=== PATIENT | male | born 1945 | race Caucasian/White ===

== ENCOUNTER 2022-04-15 07:28 | Day surgery (SDC) | payer MEDICARE ==
[2022-04-14 12:18] LABS: BASOPHILS % (AUTO) 0.3 % (0-1); EOSINOPHILS # (AUTO) 0.1 X10'3 (0-0.9); EOSINOPHILS % (AUTO) 1.3 % (0-6); HEMATOCRIT 45.2 % (42.0-52.0); HEMOGLOBIN 15.3 g/dl (14.0-17.9); LYMPHOCYTES # (AUTO) 1.6 X10'3 (1.1-4.8); LYMPHOCYTES % (AUTO) 23.9 % (21-51); MEAN CORPUSCULAR HEMOGLOBIN 33.8 PG (27.0-31.0); MEAN CORPUSCULAR HGB CONC 33.9 g/dL (33.0-36.5); MEAN CORPUSCULAR VOLUME 99.7 FL (78-98); MEAN PLATELET VOLUME 8.1 FL (7.4-10.4); MONOCYTES # (AUTO) 0.5 X10'3 (0-0.9); MONOCYTES % (AUTO) 6.6 % (2-12); NEUTROPHILS # (AUTO) 4.7 X10'3 (1.8-7.7); NEUTROPHILS % (AUTO) 67.9 % (42-75); PLATELET COUNT 240 X10'3 (140-440); RED BLOOD COUNT 4.53 X10'6 (4.70-6.10); RED CELL DISTRIBUTION WIDTH 14.1 % (11.5-14.5); WHITE BLOOD COUNT 6.9 X10'3 (4.5-11.0)
[2022-04-14 12:29] LABS: ALBUMIN 3.8 G/DL (3.4-5.0); ANION GAP 7 (8-16); BLOOD UREA NITROGEN 9 MG/DL (7-18); BUN/CREATININE RATIO 8.9 (5.4-32.0); CALCIUM 9.4 MG/DL (8.5-10.1); CHLORIDE 100 MMOL/L (99-107); CREATININE 1.01 MG/DL (0.60-1.10); GLUCOSE 129 MG/DL (70-104); SODIUM 136 MMOL/L (135-145); TOTAL CARBON DIOXIDE 29.1 MMOL/L (24-32); eGFR 72 ML/MIN
[2022-04-14 12:32] LABS: APTT 26 SECONDS (22-32)
[~2022-04-15] VITALS: Ht 172.7 cm; Wt 104.5 kg
[2022-04-15] VITALS (12 sets, daily range): BP systolic 134–168; BP diastolic 66–89
[2022-04-15] MEDS ORDERED: normal saline 1,000 ML IV SCH (07:55)
[2022-04-15] MEDS ORDERED: diphenhydrAMINE 25mg capsule PO PRN (07:55)
[2022-04-15] MEDS ORDERED: LORazepam 0.5 MG tablet PO PRN (07:55)
[2022-04-15] MEDS ORDERED: OMEP20CA16 PO (08:05)
[2022-04-15] MEDS ORDERED: GABA300T25 (08:05)
[2022-04-15] MEDS ORDERED: SIMV10TA98 PO (08:05)
[2022-04-15] MEDS ORDERED: LOSA1TAB41 PO (08:05)
[2022-04-15] MEDS ORDERED: FLUTICASONE (08:08)
[2022-04-15] MEDS ORDERED: ASPI-1144 PO (08:08)
[2022-04-15] MEDS ORDERED: METO-384 PO (08:08)
[2022-04-15] MEDS ORDERED: VITAMIN B12 PO (08:22)
[2022-04-15] MEDS ORDERED: TRIA1CAP88 PO (08:22)
[2022-04-15] MEDS ORDERED: CHOL400T57 PO (08:22)
[2022-04-15] MEDS ORDERED: CALC-212 PO (08:22)
[2022-04-15] MEDS ORDERED: UBID100C16 PO (08:22)
[2022-04-15] MEDS ORDERED: FOLI0.8C PO (08:22)
[2022-04-15] MEDS ORDERED: ALBU8HFA PO (08:24)
[2022-04-15] MEDS ORDERED: THIA100T66 PO (08:24)
[2022-04-15] MEDS ORDERED: verapamil 2.5 mg/ml inj IV ONE (08:49)
[2022-04-15] MEDS ORDERED: nitroGLYCERIN-Tridil 50MG/D5W 250 ML IV ONE (08:49)
[2022-04-15] MEDS ORDERED: LIDOcaine 1% (10mg/ml) 2ml vial ONE (08:49)
[2022-04-15] MEDS ORDERED: fentaNYL/PF 50MCG/1 ML 2ML syringe ONE (08:49)
[2022-04-15] MEDS ORDERED: heparin 1,000unit/ml 10ml vial 10 ML ONE (08:49)
[2022-04-15] MEDS ORDERED: midazolam 1 mg/ML 2ml injection ONE (08:49)
[2022-04-15] MEDS ORDERED: iohexol 350MG/ML 100ml bottle IV ONE (08:50)
[2022-04-15] MEDS ORDERED: HEPARIN SOD,PORK IN 0.45% NACL 250 ML IV ONE (10:21)
[2022-04-15] MEDS ORDERED: clopidogrel 300mg tablet ONE (10:36)
--- NOTE | 2022-04-15 11:00 | NUR ---
Bedside report received from PEGGY Christianson s/p left/right heart cath with PCI. Radial site stable with vasc band intact. No hematoma or bleeding noted. Vital signs stable/NSR on monitor.
--- NOTE | 2022-04-15 12:00 | NUR ---
Heparin gtt discontinued per MD orders.
[2022-04-15 12:19] LABS: ISTAT Hct MIX 44 %PCV (42-52); ISTAT O2 SATURATION MIX VENOUS 64 % (60-80); ISTAT SOURCE BLNK
[2022-04-20 06:24] LABS: ISTAT HGB ART 13.3 g/dl (14.0-17.9); ISTAT Hct ART 39 %PCV (42-52); ISTAT O2 SATURATION ARTERIAL 93 % (95-98); ISTAT SOURCE BLNK
== END 2022-04-15 17:30 | disposition home or self-care (01) ==
LOC: SSTAY O 07:28
PROVIDERS: ATTEND Internal Medicine Cardiovascular Disease
DX: R94.39 Abnormal result of other cardiovascular function study (principal); I25.10 Atherosclerotic heart disease of native coronary artery without angina pectoris; I10 Essential (primary) hypertension; I48.0 Paroxysmal atrial fibrillation; E78.5 Hyperlipidemia, unspecified; I48.91 Unspecified atrial fibrillation; Z90.49 Acquired absence of other specified parts of digestive tract; Z98.890 Other specified postprocedural states; Z98.41 Cataract extraction status, right eye; Z98.42 Cataract extraction status, left eye; Z79.01 Long term (current) use of anticoagulants; Z79.899 Other long term (current) drug therapy; Z82.49 Family history of ischemic heart disease and other diseases of the circulatory system; Z88.6 Allergy status to analgesic agent
CPT/HCPCS: 36415; 76937; 80048; 82803; 85014; 85025; 85347; 85610; 85730; 93005; 93460; 99152; 99153; A6258; C1725; C1751; C1769; C1874; C1894; C9600; J1644; J2250; J3010; J3490; J7030; Q0163; Q9967; 93458; A4620; A5120; A6402

== ENCOUNTER 2024-05-17 05:52 | Day surgery (SDC) | payer MEDICARE ==
[2024-05-16 16:31] LABS: BASOPHILS % (AUTO) 0.3 % (0-1); EOSINOPHILS % (AUTO) 0.7 % (0-6); HEMATOCRIT 43.5 % (42.0-52.0); HEMOGLOBIN 14.9 g/dl (14.0-17.9); LYMPHOCYTES # (AUTO) 0.9 X10'3 (1.1-4.8); LYMPHOCYTES % (AUTO) 17.6 % (21-51); MEAN CORPUSCULAR HEMOGLOBIN 36.3 PG (27.0-31.0); MEAN CORPUSCULAR HGB CONC 34.4 g/dL (33.0-36.5); MEAN CORPUSCULAR VOLUME 105.7 FL (78-98); MEAN PLATELET VOLUME 7.6 FL (7.4-10.4); MONOCYTES # (AUTO) 0.6 X10'3 (0-0.9); MONOCYTES % (AUTO) 11.2 % (2-12); NEUTROPHILS # (AUTO) 3.7 X10'3 (1.8-7.7); NEUTROPHILS % (AUTO) 70.2 % (42-75); PLATELET COUNT 226 X10'3 (140-440); RED BLOOD COUNT 4.11 X10'6 (4.70-6.10); RED CELL DISTRIBUTION WIDTH 13.6 % (11.5-14.5); WHITE BLOOD COUNT 5.3 X10'3 (4.5-11.0)
[2024-05-16 16:39] LABS: ALBUMIN 3.9 G/DL (3.4-5.0); ANION GAP 6 (8-16); BLOOD UREA NITROGEN 9 MG/DL (7-18); BUN/CREATININE RATIO 8.5 (10.0-20.0); CALCIUM 9.1 MG/DL (8.5-10.1); CHLORIDE 97 MMOL/L (99-107); CREATININE 1.06 MG/DL (0.60-1.10); GLUCOSE 94 MG/DL (70-104); POTASSIUM 3.8 MMOL/L (3.5-5.1); SODIUM 135 MMOL/L (135-145); TOTAL CARBON DIOXIDE 32.2 MMOL/L (24-32); eGFR 68 ML/MIN
[2024-05-16 16:44] LABS: APTT 27 SECONDS (22-32); PROTHROMBIN TIME 10.8 SECONDS (9.0-12.0)
[2024-05-17] VITALS (12 sets, daily range): BP systolic 109–148; BP diastolic 50–80; PULSE 50–60; RESP 13–22; TEMP 97.4; O2SAT 94–99
[~2024-05-17] VITALS: Ht 172.7 cm; Wt 98.3 kg
[~2024-05-17 05:52] MED LIST: ALBU8HFA PO; ASPI-1144 PO; CALC-212 PO; CHOL400T57 PO; FLUTICASONE; FOLI0.8C PO; GABA300T25; LOSA1TAB41 PO; METO-384 PO; OMEP20CA16 PO; SIMV10TA98 PO; THIA100T66 PO; TRIA1CAP88 PO; UBID100C16 PO; VITAMIN B12 PO
[2024-05-17] MEDS ORDERED: ROSU40TA89 PO (06:59)
[2024-05-17] MEDS ORDERED: CLOP75TA34 PO (06:59)
[2024-05-17] MEDS ORDERED: POTA99CA PO (07:04)
[2024-05-17] MEDS: LORazepam 0.5 MG tablet PO PRN (07:14)
[2024-05-17] MEDS: diphenhydrAMINE 25mg capsule PO PRN (07:14)
[2024-05-17] MEDS: normal saline 1,000 ML IV SCH (07:14)
[2024-05-17] MEDS ORDERED: heparin 1,000unit/ml 10ml vial 10 ML ONE (07:15)
[2024-05-17] MEDS ORDERED: fentaNYL/PF 50MCG/1 ML 2ML syringe ONE (07:15)
[2024-05-17] MEDS ORDERED: verapamil 2.5 mg/ml inj IV ONE (07:15)
[2024-05-17] MEDS ORDERED: iohexol 350 MG/ML 50ML vial IV ONE (07:15)
[2024-05-17] MEDS ORDERED: LIDOcaine 1% (10mg/ml) 2ml vial ONE (07:15)
[2024-05-17] MEDS ORDERED: midazolam 1 mg/ML 2ml injection ONE (07:15)
[2024-05-17] MEDS ORDERED: iohexol 350MG/ML 100ml bottle IV ONE ×2 (07:15→08:33)
[2024-05-17] MEDS ORDERED: nitroGLYCERIN 500mcg/5mL D5W 5 ML IV ONE (07:16)
[2024-05-17] MEDS ORDERED: FLUT16SP26 BOTHNARES (07:38)
[2024-05-17] MEDS ORDERED: GABA300C PO (07:38)
[2024-05-17] MEDS ORDERED: Vitamin D3 (07:40)
[2024-05-17] MEDS ORDERED: ALBU90AE INH (07:40)
[2024-05-17] MEDS ORDERED: HYDROcodone/acetaminophen 5mg/325mg tablet PO PRN (09:55)
[2024-05-17] MEDS ORDERED: HYDROcodone/acetaminophen 10/325mg tab PO PRN (09:55)
[2024-05-17] MEDS ORDERED: FLU VACC TS2024-25(6MOS UP)/PF 45 MCG/0.5 ML SYRINGE IMVAC ONE (11:00)
== END 2024-05-17 13:05 | disposition home or self-care (01) ==
LOC: SSTAY O 05:52
PROVIDERS: ATTEND Internal Medicine Cardiovascular Disease
DX: R94.39 Abnormal result of other cardiovascular function study (principal); I25.10 Atherosclerotic heart disease of native coronary artery without angina pectoris; Z23 Encounter for immunization; E78.5 Hyperlipidemia, unspecified; F17.200 Nicotine dependence, unspecified, uncomplicated; I48.0 Paroxysmal atrial fibrillation; I10 Essential (primary) hypertension; Z95.5 Presence of coronary angioplasty implant and graft; Z92.3 Personal history of irradiation; Z85.51 Personal history of malignant neoplasm of bladder
CPT/HCPCS: 36415; 80048; 85025; 85610; 85730; 90471; 90686; 93005; 93458; 99152; 99153; A6258; A6402; C1725; C1769; C1894; J1644; J2003; J2250; J3010; J3490; J7030; Q0163; Q9967; Z7610; 76937